=== PATIENT | female | born 2000 | race Caucasian/White ===

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

== ENCOUNTER 2019-04-23 22:46 | Emergency (ER) | payer OTHER ==
[~2019-04-23] VITALS: Ht 157.5 cm; Wt 72.2 kg
[~2019-04-23 22:46] MED LIST changes: +AZIT500T3 PO; +CEPH-443 PO; -IBUP800T25 PO; +IBUP800T48 PO; +ONDA4TAB14 PO
[2019-04-23 22:50] VITALS: Ht 157.5 cm; Wt 72.2 kg
[2019-04-24] MEDS ORDERED: KETOROLAC 30 MG INJ IM STA (01:59)
[2019-04-24] MEDS ORDERED: ONDANSETRON (ODT) 4 MG TAB ODT STA (01:59)
[2019-04-24] MEDS ORDERED: HYDROCODONE/APAP (5/325) TAB PO ONE (02:00)
[2019-04-24 03:29] VITALS: BP 110/74; PULSE 77; RESP 18
== END 2019-04-24 04:04 | disposition home or self-care (01) ==
LOC: FTE 22:46
DX: S30.0XXA Contusion of lower back and pelvis, initial encounter (principal); N39.0 Urinary tract infection, site not specified; W01.198A Fall on same level from slipping, tripping and stumbling with subsequent striking against other object, initial encounter; Y92.481 Parking lot as the place of occurrence of the external cause
CPT/HCPCS: 72202; 72220; 81001; 81025; 87086; J1885; Z7610; 96372